=== PATIENT | female | born 1975 | race Caucasian/White ===

== ENCOUNTER 2017-01-31 10:10 | Day surgery (SDC) | payer OTHER ==
[~2017-01-31] VITALS: Ht 157.5 cm; Wt 69.4 kg
[2017-01-31] VITALS (14 sets, daily range): BP systolic 95–113; BP diastolic 51–68; PULSE 78–96; RESP 11–21; Ht 157.5 cm; Wt 69.4 kg
[~2017-01-31 10:10] MED LIST: ACET500C5 PO; DIPHENHYDRAMINE 50 MG INJ IV PRN; FENTAnyl 50 MCG/ML VIAL IV PRN; HYDROmorphONE (0.2 MG/ML) 10ML SYG IV PRN; KETOROLAC 30 MG INJ IV PRN; MEPERIDINE 25 MG INJ IV PRN; ONDANSETRON 4 MG INJ IV PRN; OXYCODONE/ACETAMINOPHEN (5/325) TAB PO PRN; PROCHLORPERAZINE 10 MG INJ IV PRN
[2017-01-31] MEDS ORDERED: CEFAZOLIN 2 GM/50 ML (PMX) 50 ML IVPB ONE (11:00)
[2017-01-31] MEDS ORDERED: SOD CHLORIDE 0.9% 1,000 ML IV ONE (11:00)
[2017-01-31] MEDS ORDERED: MIDAZOLAM 1 MG/ML 2 ML INJ ONE (11:05)
[2017-01-31] MEDS ORDERED: PROPOFOL 20 ML ONE (11:05)
[2017-01-31] MEDS ORDERED: LIDOCAINE 2% (SDV) 5 ML INJ ONE (11:05)
[2017-01-31] MEDS ORDERED: FENTAnyl 50 MCG/ML VIAL ONE (11:05)
[2017-01-31 11:36] LABS: BASOPHILS % 0.4 % (0.0-2.0); EOSINOPHILS # 0.3 10^3/ul (0.0-0.5); EOSINOPHILS % 3.7 % (0.0-7.0); HEMOGLOBIN 12.8 g/dl (12.0-16.0); LYMPHOCYTES % 27.9 % (15.0-51.0); MEAN CORPUSCULAR HEMOGLOBIN 32.2 pg (29.0-33.0); MEAN CORPUSCULAR HGB CONC 34.6 g/dl (32.0-37.0); MEAN PLATELET VOLUME 11.5 fl (7.4-10.4); MONOCYTE # 0.6 10^3/ul (0.3-0.9); MONOCYTES % 8.9 % (0.0-11.0); NEUTROPHIL # 4.1 10^3/ul (1.6-7.5); NEUTROPHILS % 58.8 % (39.0-77.0); PLATELET COUNT 170 10^3/UL (140-415); RED BLOOD COUNT 3.98 10^6/ul (4.20-5.40); RED CELL DISTRIBUTION WIDTH 12.9 % (11.5-14.5); WHITE BLOOD COUNT 7.1 10^3/ul (4.8-10.8)
--- NOTE | 2017-01-31 11:43 | HPN ---
Date/Time of Note Date/Time of Note DATE: 01/31/17 TIME: 11:43 Interval H&P Admission Note Pt. seen H&P reviewed: No system changes RHONA DIAZ MD Jan 31, 2017 11:43
[2017-01-31] MEDS ORDERED: BUPIVACAINE 0.25%/EPI (SDV) 30 ML INJ ONE (11:59)
[2017-01-31] MEDS ORDERED: POLYMYXIN/BACITRACIN 1L IRRIG ONE (11:59)
[2017-01-31] MEDS ORDERED: BUPIVACAINE 0.25%/EPI (SDV) 30 ML INJ INJ ONE (12:00)
[2017-01-31] MEDS ORDERED: POLYMYXIN/BACITRACIN 1L IRRIG IRR ONE (12:00)
[2017-01-31 12:04] LABS: ALBUMIN 4.1 g/dl (3.3-4.9); ALBUMIN/GLOBULIN RATIO 1.28; BILIRUBIN,INDIRECT 0.3 mg/dl (0-1.1); BILIRUBIN,TOTAL 0.3 mg/dl (0.2-1.3); TOTAL PROTEIN 7.3 g/dl (6.1-8.1)
[2017-01-31 12:07] LABS: CALCIUM 8.7 mg/dl (8.4-10.2); CREATININE 0.53 mg/dl (0.44-1.00); POTASSIUM 4.1 mmol/L (3.5-5.1)
[2017-01-31 12:10] LABS: INR 1.01; PROTIME 13.3 Sec (12.2-14.2)
[2017-01-31 12:11] LABS: PARTIAL THROMBOPLASTIN TIME 30.7 Sec (25.0-35.0)
[2017-01-31] MEDS ORDERED: ROCURONIUM 50 MG INJ ONE (12:21)
[2017-01-31] MEDS ORDERED: CEFAZOLIN 1 GM INJ ONE (12:21)
[2017-01-31] MEDS ORDERED: SUCCINYLCHOLINE CHLORIDE 100 MG/5 ML SYG IV ONE (12:21)
[2017-01-31] MEDS ORDERED: ONDANSETRON 4 MG INJ ONE (12:22)
[2017-01-31] MEDS ORDERED: DEXAMETHASONE 4 MG/ML 1 ML INJ ONE (12:22)
[2017-01-31] MEDS ORDERED: METOCLOPRAMIDE 10 MG INJ ONE (12:22)
[2017-01-31] MEDS ORDERED: PHENYLephrine (100 MCG/ML) 5ML SYG ONE (12:38)
[2017-01-31] MEDS ORDERED: NEOSTIGMINE 3 MG/3 ML SYRINGE ONE ×2 (12:42→12:49)
[2017-01-31] MEDS ORDERED: KETOROLAC 30 MG INJ ONE (12:42)
[2017-01-31] MEDS ORDERED: GLYCOPYRROLATE 0.4 MG INJ ONE ×2 (12:42→12:49)
--- NOTE | 2017-01-31 13:10 | OPR ---
Date/Time of Note Date/Time of Note DATE: 01/31/17 TIME: 13:07 Operative Report Procedure Date: Jan 31, 2017 Preoperative Diagnosis Ventral/umbilical hernia Postoperative Diagnosis Ventral/umbilical hernia Operation Performed Repair of ventral/umbilical hernia with mesh Surgeon: RHONA DIAZ MD Accountant Manager: MAR CHEN MD Anesthesia: general Anesthesiologist: KIRK PRABHAKAR MD Estimated Blood Loss: minimal Specimens Hernia sac Grafts/Implants Ethicon proceed ventral hernia patch size small Complications: None Pt Condition Post Procedure: stable Disposition: PACU Indications Patient is an 41-year-old female who presented to the office with a painful bulge involving the umbilicus. She was diagnosed on physical exam as having a ventral/umbilical hernia. The patient was scheduled for elective repair with mesh. All risks and benefits of the procedure including, but not limited to: Wound infection, excessive bleeding, postoperative seroma/hematoma formation, hernia recurrence, chronic pain, etc. were all discussed with the patient in full detail. The patient fully understood and wished to proceed with the procedure. Informed consent was obtained. Operative\Procedure Findings Fat-containing umbilical/ventral hernia Procedure Description Patient was brought to the operating room and placed supine on the operating table. Bilateral sequential compression devices were placed on both lower extremities. A dose of broad-spectrum perioperative intravenous antibiotics was given. After the induction of smooth general anesthesia the patient's abdomen was prepped and draped in standard surgical fashion. After performance of the surgical timeout 0.25% Marcaine with epinephrine was injected around the area of the incision. An infraumbilical semicircular incision was then made using a 15 blade scalpel. It was carried down through the skin and the dermis. Blunt dissection was then done using Annabella clamps to the level of the anterior rectus fascia. The umbilicus was then encircled using a Annabella clamp. A fat-containing umbilical/ventral hernia was identified. The umbilicus was then transected at its base and the sac dissected off of the umbilicus. The hernia sac was transected and passed off the field as specimen. A small Ethicon proceed ventral hernia patch was then used to repair the hernia defect. Its tails were secured to the fascia using interrupted 2-0 Novafil sutures. The mesh was soaked in antibiotic irrigation prior to insertion into the field. With the repair complete it was inspected and noted to be tension-free and hemostatic. The wound cavity was then irrigated with more antibiotic irrigation. The fascia was then reapproximated over the mesh using a 0 PDS suture in [id number] fashion. The umbilicus was then tacked back down to the fascia using interrupted 3-0 Vicryl suture. Incision was then closed in layers using interrupted 3-0 Vicryl sutures for the dermal layer. The skin was reapproximated using a running 4-0 Monocryl suture in subcuticular fashion. Further local anesthesia was applied around the skin of the incision site. Incision was cleaned and Dermabond was applied as well as an abdominal binder. The patient was awoken from anesthesia and transported to the recovery room in stable condition. All counts were correct at the end of the case 2. RHONA DIAZ MD Jan 31, 2017 13:10
[2017-01-31] MEDS ORDERED: ONDANSETRON 4 MG INJ IV PRN (13:30)
[2017-01-31] MEDS ORDERED: HYDROCODONE/APAP (5/325) TAB PO PRN ×2 (13:30)
[2017-01-31] MEDS ORDERED: morphine 4 MG/ML VIAL IV PRN (13:30)
[2017-01-31] MEDS ORDERED: IBUPROFEN 600 MG TAB PO PRN (13:30)
[2017-01-31] MEDS ORDERED: KETOROLAC 30 MG INJ IV PRN (13:30)
== END 2017-01-31 14:56 | disposition home or self-care (01) ==
LOC: SDS 10:10
PROVIDERS: ATTEND Surgery
DX: K42.9 Umbilical hernia without obstruction or gangrene (principal)
CPT/HCPCS: 49585; 80053; 84703; 85025; 85610; 85730; 88304; C1781; J0690; J1100; J1170; J1885; J2175; J2250; J2370; J2405; J2710; J2765; J3010; J7999; Z7512; Z7610